=== PATIENT | male | born 2005 | race Caucasian/White ===

== ENCOUNTER 2025-04-30 10:27 | Emergency (ER) | payer OTHER ==
[~2025-04-30] VITALS: Ht 177.8 cm; Wt 92.5 kg
[~2025-04-30 10:27] MED LIST: FLINTSTONES1 EACH PO; VITAMIN C500 M2 PO
[2025-04-30 11:33] VITALS: BP 113/79
== END 2025-04-30 11:34 | disposition home or self-care (01) ==
LOC: ED 10:27
DX: M25.561 Pain in right knee (principal); M25.461 Effusion, right knee; Z98.890 Other specified postprocedural states
CPT/HCPCS: 73560; 99283